=== PATIENT | female | born 1995 | race Caucasian/White ===

== ENCOUNTER → 2023-10-17 | Outpatient (CLI) | payer MEDICAID | END | disposition home or self-care (01) | LOC: RAD 13:35 | PROVIDERS: ATTEND Family Medicine | DX: M95.2 Other acquired deformity of head (principal) | CPT/HCPCS: 70260 ==

== ENCOUNTER 2024-02-16 08:57 | Outpatient (CLI) | payer MEDICAID | END 2024-02-16 23:59 | disposition home or self-care (01) | LOC: RAD 08:57 | PROVIDERS: ATTEND Family Medicine | DX: M43.17 Spondylolisthesis, lumbosacral region (principal); R20.0 Anesthesia of skin; M41.86 Other forms of scoliosis, lumbar region | CPT/HCPCS: 72040; 72070; 72100 ==